=== PATIENT | male | born 1950 | race Caucasian/White ===

== ENCOUNTER → 2016-12-24 | Day surgery (SDC) | payer MEDICARE ==
[~2016-12-24] MED LIST: BUPIVACAINE/EPINEPHRINE 0.25% PF 10 ML VIAL ONE; KETOROLAC TROMETHAMINE 30 MG/ML (IVP) VIAL IV PUSH ONE; LACTATED RINGER'S 1,000 ML BAG IV ONE; MIDAZOLAM HCL 2 MG/2 ML VIAL ONE; NEOMYCIN/POLYMYXIN/BACITRACIN OINT 15 GM TUBE ONE; ONDANSETRON HCL 4 MG/2 ML VIAL IV PUSH ONE; PROPOFOL 200 MG/20 ML AMP IV ONE; SODIUM CHLORIDE 0.9% SOLN 1000 ML BTL ONE; ceFAZolin 2 GM PREMIX 50 ML ONE; oxyCODONE/ACETAMINOPHEN 5 MG/325 MG TAB ONE
--- NOTE | 2016-12-24 09:49 | TN ---
cc: MIGEL TAPIA M.D. DATE OF SURGERY: 12/24/2016 PREOPERATIVE DIAGNOSIS 1. Symptomatic enlarging umbilical hernia. 2. Subcutaneous mass 2 cm left thigh. 3. Contracted open appendectomy scar right lower quadrant. POSTOPERATIVE DIAGNOSIS 1. Symptomatic enlarging umbilical hernia. 2. Subcutaneous mass 2 cm left thigh. 3. Contracted open appendectomy scar right lower quadrant. PROCEDURE PERFORMED 1. Open umbilical hernia repair with mesh. 2. Excision 2 cm subcutaneous mass left thigh. 3. Wide local excision contracted appendectomy scar right lower quadrant. SURGEON Migel Tapia MD ECHO VASCULAR TECHNOLOGIST GABE Manzanares ANESTHESIA General LMA. COMPLICATIONS None. INDICATION FOR PROCEDURE Mr. Guzman is a pleasant 66-year-old gentleman who had a symptomatic enlarging umbilical hernia. The patient also had a symptomatic subcutaneous mass on his left anterior thigh. On exam he also had a severe contraction of his appendectomy scar in the right lower quadrant from a previous drain. I offered him repair of the hernia, excision of the scar and excision of the subcutaneous mass. The patient was agreeable. DETAILS OF PROCEDURE The patient was identified, brought to the operating room and placed supine on the operating table. After adequate general anesthesia was achieved with LMA, the anterior abdomen and left thigh was prepped and draped in standard surgical fashion. Attention was first directed to the umbilical region. A semilunar umbilical incision was proposed with a pen. 0.25% Marcaine was injected along the proposed incision line. Incision was then made in the infraumbilical space. Subcutaneous tissue was dissected with blunt hemostat dissection. Umbilical stalk was identified. Umbilical stalk was then dissected off of the hernia sac using scissors. The hernia sac was opened and found to contain preperitoneal fat. This was then reduced below the fascia. The fascia was then cleaned off circumferentially with a generous margin in all directions. Attention was now directed to repair. Repair was accomplished first using a 0-Prolene suture interrupted x3 to close the defect primarily. Once we did this a piece of onlay mesh of polypropylene was placed. It was secured in the four corners using a 2-0 Prolene suture. It was then secured on the superior and inferior border and the midpoint using a 2-0 Prolene suture. With this the defect was completely covered in two layers. There was generous mesh overlap over the previous fascial defect. Wound was copiously irrigated with normal saline solution. Wound was injected with additional local anesthetic. Umbilical stalk was then tacked down to the abdominal wall using a 3-0 Vicryl. Subcutaneous tissues was closed with 3-0 Vicryl and skin was closed with 4-0 Vicryl. Attention was now directed to the left anterior thigh. On the left anterior thigh 0.25% Marcaine was injected directly overlying the mass which had been marked in the preoperative holding area. A transverse incision was made. Subcutaneous tissue was dissected with blunt dissection. Immediately we encountered an encapsulated lipoma. Lipoma was excised in toto and sent to pathology for analysis. The wound was irrigated with normal saline solution and closed with a 4-0 Vicryl subcuticular. Finally attention was directed to the appendectomy scar. The patient had a vertical appendectomy scar with the inferior portion of it retracted where he had a drain. We therefore used elliptical skin incision to excise the retracted portion and connect it to the previous scar just lengthening the vertical scar. Subcutaneous tissue was dissected with electrocautery Bovie. All bands pulling the tissue down were freed up. The skin and subcutaneous fat was freed up circumferentially. Wound was copiously irrigated with normal saline solution. Wound was then closed in two layers using 3-0 and 4-0 Vicryl. Sterile dressings were applied to all wounds. The patient was awakened, brought to recovery in stable condition. Please note the [employer] hr assistant was medically necessary due to her specialized surgical skills and extensive knowledge of my surgical technique. MD LATA Swift/ANKIT /9:25 AM /9:33 AM
== END | disposition home or self-care (01) ==
LOC: ESDC 07:04
PROVIDERS: ATTEND Surgery Trauma Surgery
DX: K42.9 Umbilical hernia without obstruction or gangrene (principal); D17.24 Benign lipomatous neoplasm of skin and subcutaneous tissue of left leg; L90.5 Scar conditions and fibrosis of skin
CPT/HCPCS: 00400; 00750; 13101; 27327; 49585; 88304; C1781; J0690; J1885; J2250; J2405; J3010; J7120; 88305